=== PATIENT | female | born 1970 ===

== ENCOUNTER 2019-08-27 12:21 | Outpatient (CLI) | payer BC ==
--- NOTE | 2019-08-27 12:55 | RAD ---
CERVICAL SPINE FIVE VIEWS: INDICATIONS: Spondylosis without myelopathy. Neck pain. TECHNIQUE: Lateral views obtained with neutral, flexion and extension. FINDINGS: There are moderate degenerative changes. There is disk space narrowing at all levels. Prominent disk space narrowing and hypertrophic spurring are noted at the C5-C6 level and C6-C7 level. There is mild anterior wedging of C5 and C6 which appears chronic. Slight anterolisthesis at C4-C5 measured at 2 m m. Posterior spondylosis at C5-C6. No significant change in alignment with flexion and extension. IMPRESSION: Moderate degenerative changes as described. POS: OFF
== END 2019-08-27 12:22 | disposition home or self-care (01) ==
LOC: RAD 12:21
PROVIDERS: ATTEND Specialist
DX: M47.22 Other spondylosis with radiculopathy, cervical region (principal)
CPT/HCPCS: 72050